=== PATIENT | female | born 1935 | race Asian ===

== ENCOUNTER 2022-01-11 20:27 | Emergency (ER) | payer OTHER ==
[~2022-01-11] VITALS: Ht 152.4 cm; Wt 83.0 kg
[2022-01-11 20:27] VITALS: BP 164/66; TEMP 98.9
[2022-01-11 21:06] LABS: POTASSIUM 4.3 mmol/L (3.6-5.2)
[2022-01-11 21:08] LABS: PLATELET COUNT 210 K/uL (152-353)
[2022-01-12] MEDS ORDERED: AMLODIPINE BESYLATE PO (09:07)
[2022-01-12] MEDS ORDERED: ASPIRIN/ENTERIC81 MG PO (09:18)
[2022-01-12] MEDS ORDERED: CYCLOBENZAPRINE10 MG PO (09:19)
[2022-01-12] MEDS ORDERED: BRIMONIDINE0.2 % OPTH (09:19)
[2022-01-12] MEDS ORDERED: DIVALPROEX125 M1 PO (09:20)
[2022-01-12] MEDS ORDERED: DONEPEZIL HYDROC5 MG PO (09:20)
[2022-01-12] MEDS ORDERED: INSULIN LI100 UNIT/1 SC (09:21)
[2022-01-12] MEDS ORDERED: FUROSEMIDE40 MG PO (09:22)
[2022-01-12] MEDS ORDERED: MELATONIN5 M4 PO (09:23)
[2022-01-12] MEDS ORDERED: ROSUVASTATIN CA40 MG PO (09:26)
[2022-01-12] MEDS ORDERED: RISPERDAL12.5 MG IM (09:26)
[2022-01-12] MEDS ORDERED: DICLOFENAC SODIUM1 % TD (09:27)
[2022-01-12] MEDS ORDERED: TIMOLOL MAL0.5 % OPTH (09:28)
[2022-01-12] MEDS ORDERED: SENNA8.6 M1 PO (09:30)
[2022-01-12] MEDS ORDERED: TRAVOPROST0.0041 OPTH (09:31)
== END 2022-01-11 22:10 | disposition still patient (30) ==
LOC: ED 20:27
PROVIDERS: Emergency Medicine
DX: F03.91 Unspecified dementia, unspecified severity, with behavioral disturbance (principal); Z11.52 Encounter for screening for COVID-19; Z04.6 Encounter for general psychiatric examination, requested by authority
CPT/HCPCS: 80053; 85027; 87635; 93005; 99283; U0003